=== PATIENT | female | born 1995 | race Caucasian/White ===

== ENCOUNTER 2018-08-09 19:19 | Emergency (ER) | payer BC ==
[~2018-08-09] VITALS: Ht 162.6 cm; Wt 60.8 kg
[2018-08-09 20:26] LABS: BILIRUBIN,URINE NEGATIVE (NEG); CLARITY,URINE TURBID; COLOR,URINE YELLOW; NITRITE,URINE NEGATIVE (NEG); PH,URINE 7.5; PROTEIN,URINE NEGATIVE (NEG-TRACE)
--- NOTE | 2018-08-09 20:27 | PHYS DOC ---
Past Medical History Past Medical History: No Pertinent History Additional Past Surgical Histo: WISDOM TEETH Alcohol Use: None Drug Use: None Adult General Chief Complaint Chief Complaint: VAGINAL BLEEDING HPI HPI 23-year-old female presents to ER for complaints of increased vaginal bleeding starting tonight around 6:30 PM. She reports she was seen by her OB doctor today and had dark brown vaginal discharge during the appointment. Patient states she had no change in symptoms until tonight at 6:30 PM. Patient denies any sexual intercourse or tampons. Patient reports she is 1 para 0 LMP 07/03/18. Pt reports on Sunday she had her hCG quantitative checked. Patient reports she was told everything was "okay" on labs. Patient had recheck today on labs but did not get results. Patient states she did have pelvic exam and believes she had swabs obtained during the exam. Patient reports she has ultrasound scheduled in 2 weeks. Patient denies any fever, urinary symptoms, vaginal pressure or pain, or abdominal pain. Patient denies soaking through any pads since onset of bright red blood tonight. She denies passing any tissue or clots. Review of Systems Review of Systems Constitutional: Denies fever or chills [] Eyes: Denies change in visual acuity, redness, or eye pain [] HENT: Denies nasal congestion or sore throat [] Respiratory: Denies cough or shortness of breath [] Cardiovascular: No additional information not addressed in HPI [] GI: Denies abdominal pain, nausea, vomiting, bloody stools or diarrhea [] : Denies dysuria or hematuria [] Musculoskeletal: Denies back pain or joint pain [] Integument: Denies rash or skin lesions [] Neurologic: Denies headache, focal weakness or sensory changes [] Endocrine: Denies polyuria or polydipsia [] All other systems were reviewed and found to be within normal limits, except as documented in this note. Current Medications Current Medications Current Medications Medications (Trade) Dose Ordered Sig/Domingo Start Time Stop Time Status Last Admin Dose Admin Cephalexin HCl (Keflex) 500 mg 1X ONCE 08/09/18 23:00 08/09/18 23:01 Allergies Allergies Allergies Coded Allergies Type Severity Reaction Last Updated Verified azithromycin Allergy Intermediate 08/09/18 Yes Physical Exam Physical Exam Constitutional: Well developed, well nourished, no acute distress, non-toxic appearance. [] HENT: Normocephalic, atraumatic, bilateral external ears normal, oropharynx moist, no oral exudates, nose normal. [] Eyes: PERRLA, EOMI, conjunctiva normal, no discharge. [] Neck: Normal range of motion, no tenderness, supple, no stridor. [] Cardiovascular:Heart rate regular rhythm, no murmur [] Lungs & Thorax: Bilateral breath sounds clear to auscultation [] Abdomen: Bowel sounds normal, soft, no tenderness, no masses, no pulsatile masses. [] Skin: Warm, dry, no erythema, no rash. [] Back: No tenderness, no CVA tenderness. [] Extremities: No tenderness, no cyanosis, no clubbing, ROM intact, no edema. [] Neurologic: Alert and oriented X 3, normal motor function, normal sensory function, no focal deficits noted. [] Psychologic: Affect normal, judgement normal, mood normal. [] 2030: Pelvic exam complete. Cervix was closed. Small clot in vaginal vault. Small amount of dark red blood around cervix which when removed no erythema, lesions, or active bleeding noted. External exam normal limits. Patient had no abdominal tenderness on palpation. No palpable masses. Current Patient Data Vital Signs Vital Signs Date Time Temp Pulse Resp B/P (MAP) Pulse Ox O2 Delivery O2 Flow Rate FiO2 08/09/18 21:11 96 16 106/59 (75) 100 Room Air 08/09/18 19:35 97.1 97.1 Lab Values Laboratory Tests Test 08/09/18 19:22 08/09/18 19:38 08/09/18 21:33 Urine Collection Type Unknown Urine Color Yellow Urine Clarity Turbid Urine pH 7.5 Urine Specific [place] 1.015 Urine Protein Negative mg/dL (NEG-TRACE) Urine Glucose (UA) Negative mg/dL (NEG) Urine Ketones (Stick) Negative mg/dL (NEG) Urine Blood Large (NEG) Urine Nitrite Negative (NEG) Urine Bilirubin Negative (NEG) Urine Urobilinogen Dipstick 1.0 mg/dL (0.2 mg/dL) Urine Leukocyte Esterase Negative (NEG) Urine RBC 11-20 /HPF (0-2) Urine WBC 11-20 /HPF (0-4) Urine Squamous Epithelial Cells Few /LPF Urine Amorphous Sediment Present /HPF Urine Bacteria 0 /HPF (0-FEW) Urine Mucus Slight /LPF POC Urine HCG, Qualitative Hcg positive (Negative) White Blood Count 6.3 x10^3/uL (4.0-11.0) Red Blood Count 4.49 x10^6/uL (3.50-5.40) Hemoglobin 13.1 g/dL (12.0-15.5) Hematocrit 38.6 % (36.0-47.0) Mean Corpuscular Volume 86 fL (79-100) Mean Corpuscular Hemoglobin 29 pg (25-35) Mean Corpuscular Hemoglobin Concent 34 g/dL (31-37) Red Cell Distribution Width 13.6 % (11.5-14.5) Platelet Count 202 x10^3/uL (140-400) Neutrophils (%) (Auto) 61 % (31-73) Lymphocytes (%) (Auto) 32 % (24-48) Monocytes (%) (Auto) 6 % (0-9) Eosinophils (%) (Auto) 1 % (0-3) Basophils (%) (Auto) 0 % (0-3) Neutrophils # (Auto) 3.9 x10^3uL (1.8-7.7) Lymphocytes # (Auto) 2.0 x10^3/uL (1.0-4.8) Monocytes # (Auto) 0.4 x10^3/uL (0.0-1.1) Eosinophils # (Auto) 0.0 x10^3/uL (0.0-0.7) Basophils # (Auto) 0.0 x10^3/uL (0.0-0.2) Maternal Serum HCG Beta Subunit 75689 mIU/mL (0-5) H Laboratory Tests 08/09/18 21:33 EKG EKG [] Radiology/Procedures Radiology/Procedures [] Course & Med Decision Making Course & Med Decision Making Pertinent Labs reviewed. (See chart for details) 2240: Discussed test results with patient and her . Patient was A positive blood type so not a [place] candidate. Patient denies any increased vaginal bleeding denying soaking through any pads while in the ER. Patient remains nontoxic in appearance and in no distress at time of reexam. Patient was provided with her lab results. H&H was stable. Patient is to follow-up with her NEUROLOGY DIRECTOR in 48 hours for recheck of hCG quantitative. Education was provided on signs and symptoms to return to ER for an discharge instructions were discussed. Patient was provided with dose of Keflex for UTI diagnosis while in the ER. Prescription sent with discharge paperwork. Gilmer Disclaimer Gilmer Disclaimer This electronic medical record was generated, in whole or in part, using a voice recognition dictation system. Departure Departure Impression: Primary Impression: UTI (urinary tract infection) Additional Impressions: Vaginal bleeding during Threatened miscarriage Disposition: HOME, SELF-CARE Condition: STABLE Patient Instructions: Threatened Miscarriage, Urinary Tract Infection, Vaginal Bleeding During , First Trimester Additional Instructions: Drink plenty of fluids. Follow-up with your NEUROLOGY DIRECTOR in 48 hours for recheck of your hCG quantitative level. If soaking through more then 2-3 pads in 1 hour return to the emergency department or contact her NEUROLOGY DIRECTOR for further care. Scripts Cephalexin (KEFLEX) 500 Mg Capsule 1 CAP PO BID, #13 CAP 0 Refills start on 08/10/18 Prov: NATIVIDAD POWELL APRN 08/09/18 Problem Qualifiers NATIVIDAD POWELL APRN Aug 09, 2018 20:27
[2018-08-09 20:33] LABS: AMORPHOUS SEDIMENT,UR PRESENT /HPF; BACTERIA,URINE 0 /HPF (0-FEW); SQUAMOUS EPITHELIAL CELL,UR FEW /LPF
[2018-08-09 21:44] LABS: BASO % 0 % (0-3); EOS % 1 % (0-3); HEMATOCRIT 38.6 % (36.0-47.0); HEMOGLOBIN 13.1 g/dL (12.0-15.5); LYMPH % 32 % (24-48); MEAN CORPUSCULAR HEMOGLOBIN 29 pg (25-35); MEAN CORPUSCULAR HGB CONC 34 g/dL (31-37); MEAN CORPUSCULAR VOLUME 86 fL (79-100); MONO # 0.4 x10^3/uL (0.0-1.1); MONO % 6 % (0-9); NEUT # 3.9 x10^3uL (1.8-7.7); NEUT % 61 % (31-73); PLATELET COUNT 202 x10^3/uL (140-400); RED BLOOD COUNT 4.49 x10^6/uL (3.50-5.40); RED CELL DISTRIBUTION WIDTH 13.6 % (11.5-14.5); WHITE BLOOD COUNT 6.3 x10^3/uL (4.0-11.0)
[2018-08-09 22:45] VITALS: BP 127/63
[2018-08-09] MEDS ORDERED: CEPH-264 PO (22:50)
[2018-08-09] MEDS: CEPHALEXIN 250 MG CAPSULE. PO ONE (22:56)
== END 2018-08-09 22:55 | disposition home or self-care (01) ==
LOC: ER 19:19
DX: O20.0 Threatened abortion (principal); O23.41 Unspecified infection of urinary tract in pregnancy, first trimester; Z88.1 Allergy status to other antibiotic agents; Z3A.01 Less than 8 weeks gestation of pregnancy
CPT/HCPCS: 36415; 81001; 81025; 84702; 85025; 86850; 86900; 86901; 99283

== ENCOUNTER 2018-08-11 20:27 | Emergency (ER) | payer BC ==
[~2018-08-11] VITALS: Ht 162.6 cm; Wt 61.2 kg
[~2018-08-11 20:27] MED LIST: CEPH-264 PO
[2018-08-11 20:30] VITALS: BP 120/68
--- NOTE | 2018-08-11 22:40 | PHYS DOC ---
Past Medical History Past Medical History: No Pertinent History Additional Past Surgical Histo: WISDOM TEETH Alcohol Use: None Drug Use: None Adult General Chief Complaint Chief Complaint: OTHER COMPLAINTS HPI HPI Patient is a 23 year old [f__sex] who presents with [] Review of Systems Review of Systems Constitutional: Denies fever or chills [] Eyes: Denies change in visual acuity, redness, or eye pain [] HENT: Denies nasal congestion or sore throat [] Respiratory: Denies cough or shortness of breath [] Cardiovascular: No additional information not addressed in HPI [] GI: Denies abdominal pain, nausea, vomiting, bloody stools or diarrhea [] : Denies dysuria or hematuria [] Musculoskeletal: Denies back pain or joint pain [] Integument: Denies rash or skin lesions [] Neurologic: Denies headache, focal weakness or sensory changes [] Endocrine: Denies polyuria or polydipsia [] All other systems were reviewed and found to be within normal limits, except as documented in this note. Allergies Allergies Allergies Coded Allergies Type Severity Reaction Last Updated Verified azithromycin Allergy Intermediate 08/09/18 Yes Physical Exam Physical Exam Constitutional: Well developed, well nourished, no acute distress, non-toxic appearance. [] HENT: Normocephalic, atraumatic, bilateral external ears normal, oropharynx moist, no oral exudates, nose normal. [] Eyes: PERRLA, EOMI, conjunctiva normal, no discharge. [] Neck: Normal range of motion, no tenderness, supple, no stridor. [] Cardiovascular:Heart rate regular rhythm, no murmur [] Lungs & Thorax: Bilateral breath sounds clear to auscultation [] Abdomen: Bowel sounds normal, soft, no tenderness, no masses, no pulsatile masses. [] Skin: Warm, dry, no erythema, no rash. [] Back: No tenderness, no CVA tenderness. [] Extremities: No tenderness, no cyanosis, no clubbing, ROM intact, no edema. [] Neurologic: Alert and oriented X 3, normal motor function, normal sensory function, no focal deficits noted. [] Psychologic: Affect normal, judgement normal, mood normal. [] Current Patient Data Vital Signs Vital Signs Date Time Temp Pulse Resp B/P (MAP) Pulse Ox O2 Delivery O2 Flow Rate FiO2 08/11/18 20:30 98.6 81 18 120/68 (85) 100 Room Air 98.6 Lab Values Laboratory Tests Test 08/11/18 20:49 08/11/18 21:35 POC Urine HCG, Qualitative Hcg positive (Negative) Maternal Serum HCG Beta Subunit 21757 mIU/mL (0-5) H EKG EKG [] Radiology/Procedures Radiology/Procedures [] Course & Med Decision Making Course & Med Decision Making Pertinent Labs and Imaging studies reviewed. (See chart for details) [] Dragon Disclaimer Dragon Disclaimer This electronic medical record was generated, in whole or in part, using a voice recognition dictation system. Departure Departure Impression: Primary Impression: Elevated serum human chorionic gonadotropin (hCG) level Additional Impression: Disposition: 01 HOME, SELF-CARE Condition: STABLE Referrals: UNKNOWN PCP NAME (PCP) Patient Instructions: ABCs of , Human Chorionic Gonadotropin (hCG) Additional Instructions: Your HCG levels have risen appropriately in the past 2 days. See your insurance salesman at your next scheduled appointment or return to the emergency department if worsening. Problem Qualifiers AKIN GAY APRN Aug 11, 2018 22:40
== END 2018-08-11 22:45 | disposition home or self-care (01) ==
LOC: ER 20:27
DX: O02.81 Inappropriate change in quantitative human chorionic gonadotropin (hCG) in early pregnancy (principal); Z88.1 Allergy status to other antibiotic agents; Z3A.01 Less than 8 weeks gestation of pregnancy
CPT/HCPCS: 36415; 81025; 84702; 99283

== ENCOUNTER → 2018-08-26 | Outpatient (CLI) | payer BC ==
[2018-08-11 20:30] VITALS: BP 120/68
--- NOTE | 2018-08-26 17:38 | RAD ---
OB ultrasound less than 14 weeks to include transabdominal and transvaginal imaging 08/26/2018 CLINICAL HISTORY: First trimester . Vaginal bleeding. Pelvic pain. TECHNIQUE: Using the distended urinary bladder as a sonographic window, a real-time ultrasound examination of the pelvis was performed. Additionally in an attempt to better evaluate the uterus and adnexa, a transvaginal pelvic ultrasound was performed. Multiple images were obtained. FINDINGS: A gestational sac is seen within the endometrial canal within the left aspect of the uterine body. 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 An embryonic pole with associated yolk sac are seen. The CRL of this embryonic pole measures 3.5 mm. This corresponds to an estimated gestational age by ultrasound of 6 weeks 0 days plus or minus a standard deviation of 5 days. No embryonic cardiac activity is seen. The gestational sac is irregular and enlarged relative to the size of the embryo measuring 3.1 cm in greatest diameter. These findings are concerning for embryonic demise. A heterogeneous area is seen immediately to the right of the gestational sac within the mid aspect of the uterus which likely represents an area of subchorionic hemorrhage. This measures 2.3 cm in size. No additional abnormality of the uterus is seen. Both ovaries are within normal limits in size. The right ovary measures 4.4 x 3.9 x 2.0 cm in size. The left ovary measures 3.1 x 3.0 x 1.9 cm in size. A small amount of free fluid is seen within the pelvic cul-de-sac. No adnexal mass is seen. IMPRESSION: Findings are seen concerning for embryonic demise as outlined above. Electronically signed by: Ivan Vargas MD (08/26/2018 5:35 PM) [facility]
== END | disposition home or self-care (01) ==
LOC: US 15:46
PROVIDERS: ATTEND Obstetrics & Gynecology
DX: Z34.91 Encounter for supervision of normal pregnancy, unspecified, first trimester (principal); Z3A.08 8 weeks gestation of pregnancy
CPT/HCPCS: 76801; 76817

== ENCOUNTER 2018-10-14 21:00 | Inpatient (IN) | payer BC ==
[~2018-10-14] VITALS: Ht 162.6 cm; Wt 61.2 kg
[2018-10-14] MEDS ORDERED: KETOROLAC 30 MG/ML VIAL. IV ONE (22:15)
[2018-10-14] MEDS ORDERED: IV NORMAL SALINE 1000ML BAG 1,000 ML IV ONE (22:15)
[2018-10-14] MEDS ORDERED: ACETAMINOPHEN 500 MG TABLET PO ONE (22:15)
[2018-10-14 22:30] LABS: BASO % 0 % (0-3); EOS % 0 % (0-3); HEMATOCRIT 33.9 % (36.0-47.0); HEMOGLOBIN 11.5 g/dL (12.0-15.5); LYMPH # 0.3 x10^3/uL (1.0-4.8); LYMPH % 3 % (24-48); MEAN CORPUSCULAR HEMOGLOBIN 30 pg (25-35); MEAN CORPUSCULAR HGB CONC 34 g/dL (31-37); MEAN CORPUSCULAR VOLUME 87 fL (79-100); MONO # 0.2 x10^3/uL (0.0-1.1); MONO % 3 % (0-9); NEUT # 9.1 x10^3uL (1.8-7.7); NEUT % 94 % (31-73); PLATELET COUNT 174 x10^3/uL (140-400); RED BLOOD COUNT 3.89 x10^6/uL (3.50-5.40); RED CELL DISTRIBUTION WIDTH 13.3 % (11.5-14.5); WHITE BLOOD COUNT 9.7 x10^3/uL (4.0-11.0)
[2018-10-14 22:33] LABS: BILIRUBIN,URINE NEGATIVE (NEG); CLARITY,URINE CLEAR; COLOR,URINE YELLOW; NITRITE,URINE NEGATIVE (NEG); PROTEIN,URINE NEGATIVE (NEG-TRACE)
[2018-10-14 22:37] LABS: CALCIUM 8.8 mg/dL (8.5-10.1); CREATININE 0.9 mg/dL (0.6-1.0); GFR 78.3; POTASSIUM 3.7 mmol/L (3.5-5.1)
[2018-10-14 22:40] LABS: BACTERIA,URINE 0 /HPF (0-FEW); RBC,URINE 0 /HPF (0-2); SQUAMOUS EPITHELIAL CELL,UR FEW /LPF; WBC,URINE OCC /HPF (0-4)
[2018-10-14 22:43] LABS: ALBUMIN 3.7 g/dL (3.4-5.0); ALBUMIN/GLOBULIN RATIO 1.1 (1.0-1.7); TOTAL BILIRUBIN 1.1 mg/dL (0.2-1.0); TOTAL PROTEIN 7.2 g/dL (6.4-8.2)
[2018-10-14] MEDS ORDERED: PIPERACILLIN/TAZOBACTAM 4.5 GM in IV NORMAL SALINE 100ML 100 ML IV ONE (22:45)
[2018-10-14] MEDS ORDERED: IV NORMAL SALINE 500ML BAG 500 ML IV ONE (23:15)
[2018-10-14 23:17] LABS: % BANDS 4 % (0-9); % EOS 1 % (0-5); % LYMPHS 5 % (24-48); % SEGS 90 % (35-66); PLT ESTIMATE ADEQUATE (ADEQUATE)
[2018-10-14] MEDS ORDERED: ONDANSETRON PF 4 MG/2 ML VIAL. IV PRN (23:30)
[2018-10-14] MEDS ORDERED: PIP/TAZO PER PHARMACY MC PRN (23:30)
[2018-10-14] MEDS ORDERED: fentaNYL PF VIAL 100 MCG/2 ML VIAL IV PRN (23:30)
[2018-10-14 23:39] LABS: INFLUENZA A PATIENT NEGATIVE (NEGATIVE); INFLUENZA B PATIENT NEGATIVE (NEGATIVE)
[2018-10-14] MEDS ORDERED: IOHEXOL 300 MG/ML 100ML VIAL. IV ONE (23:45)
[2018-10-14] MEDS: IV NORMAL SALINE 1000ML BAG 1,000 ML IV SCH (23:45)
[2018-10-14] MEDS ORDERED: CONTRAST GIVEN. MC PRN (23:45)
--- NOTE | 2018-10-14 23:45 | PHYS DOC ---
Past Medical History Past Medical History: Other Additional Past Medical Histor: fifths disease, pvc's Past Surgical History: Other Additional Past Surgical Histo: WISDOM TEETH Alcohol Use: Occasionally Drug Use: None Adult General Chief Complaint Chief Complaint: FEVER HPI HPI 23-year-old female who is approximately 10 weeks had a spontaneous AB followed with an elective D&C done approximately 36 hours ago. Today she is developed some low abdominal discomfort, body aches and a headache. She states she's had no foul vaginal discharge she does continue to have some spotting which her surgeon told her would be normal. She has not had any nausea or vomiting.[] Review of Systems Review of Systems Constitutional: Reports fever[] Eyes: Denies change in visual acuity, redness, or eye pain [] HENT: Denies nasal congestion or sore throat [] Respiratory: Denies cough or shortness of breath [] Cardiovascular: No additional information not addressed in HPI [] GI: Reports some low abdominal discomfort[] : Denies dysuria or hematuria [] Musculoskeletal: Denies back pain or joint pain [] Integument: Denies rash or skin lesions [] Neurologic: Denies headache, focal weakness or sensory changes [] Endocrine: Denies polyuria or polydipsia [] All other systems were reviewed and found to be within normal limits, except as documented in this note. Current Medications Current Medications Current Medications Medications (Trade) Dose Ordered Sig/Domingo Start Time Stop Time Status Last Admin Dose Admin Acetaminophen (Tylenol) 1,000 mg 1X ONCE 10/14/18 22:15 10/14/18 22:20 DC 10/14/18 22:32 1,000 MG Ketorolac Tromethamine (Toradol 30mg Vial) 30 mg 1X ONCE 10/14/18 22:15 10/14/18 22:20 DC 10/14/18 22:31 30 MG Piperacillin Sod/ Tazobactam Sod 4.5 gm/Sodium Chloride 100 ml @ 200 mls/hr 1X ONCE 10/14/18 22:45 10/14/18 23:14 DC 10/14/18 22:57 200 MLS/HR Sodium Chloride 500 ml @ 500 mls/hr 1X ONCE 10/14/18 23:15 10/15/18 00:14 DC 10/14/18 23:00 500 MLS/HR Allergies Allergies Allergies Coded Allergies Type Severity Reaction Last Updated Verified azithromycin Allergy Intermediate 2/1/19 Yes Physical Exam Physical Exam Constitutional: Well developed, well nourished, no acute distress, non-toxic appearance. [] HENT: Normocephalic, atraumatic, bilateral external ears normal, oropharynx moist, no oral exudates, nose normal. [] Eyes: PERRLA, EOMI, conjunctiva normal, no discharge. [] Neck: Normal range of motion, no tenderness, supple, no stridor. [] Cardiovascular:Heart rate regular rhythm, no murmur [] Lungs & Thorax: Bilateral breath sounds clear to auscultation [] Abdomen: Bowel sounds normal, soft, no tenderness, no masses, no pulsatile masses. [] Skin: Warm, dry, no erythema, no rash. [] Back: No tenderness, no CVA tenderness. [] Extremities: No tenderness, no cyanosis, no clubbing, ROM intact, no edema. [] Neurologic: Alert and oriented X 3, normal motor function, normal sensory function, no focal deficits noted. [] Psychologic: Affect normal, judgement normal, mood normal. [] Current Patient Data Vital Signs Vital Signs Date Time Temp Pulse Resp B/P (MAP) Pulse Ox O2 Delivery O2 Flow Rate FiO2 10/14/18 23:07 109 20 98 10/14/18 22:05 103.1 103.1 10/14/18 22:04 111/55 (73) Room Air Lab Values Laboratory Tests Test 10/14/18 22:20 10/14/18 22:25 10/14/18 23:10 White Blood Count 9.7 x10^3/uL (4.0-11.0) Red Blood Count 3.89 x10^6/uL (3.50-5.40) Hemoglobin 11.5 g/dL (12.0-15.5) L Hematocrit 33.9 % (36.0-47.0) L Mean Corpuscular Volume 87 fL (79-100) Mean Corpuscular Hemoglobin 30 pg (25-35) Mean Corpuscular Hemoglobin Concent 34 g/dL (31-37) Red Cell Distribution Width 13.3 % (11.5-14.5) Platelet Count 174 x10^3/uL (140-400) Neutrophils (%) (Auto) 94 % (31-73) H Lymphocytes (%) (Auto) 3 % (24-48) L Monocytes (%) (Auto) 3 % (0-9) Eosinophils (%) (Auto) 0 % (0-3) Basophils (%) (Auto) 0 % (0-3) Neutrophils # (Auto) 9.1 x10^3uL (1.8-7.7) H Lymphocytes # (Auto) 0.3 x10^3/uL (1.0-4.8) L Monocytes # (Auto) 0.2 x10^3/uL (0.0-1.1) Eosinophils # (Auto) 0.0 x10^3/uL (0.0-0.7) Basophils # (Auto) 0.0 x10^3/uL (0.0-0.2) Segmented Neutrophils % 90 % (35-66) H Band Neutrophils % 4 % (0-9) Lymphocytes % 5 % (24-48) L Eosinophils % 1 % (0-5) Platelet Estimate Adequate (ADEQUATE) Sodium Level 140 mmol/L (136-145) Potassium Level 3.7 mmol/L (3.5-5.1) Chloride Level 102 mmol/L (98-107) Carbon Dioxide Level 27 mmol/L (21-32) Anion Gap 11 (6-14) Blood Urea Nitrogen 6 mg/dL (7-20) L Creatinine 0.9 mg/dL (0.6-1.0) Estimated GFR (Cockcroft-Gault) 78.3 BUN/Creatinine Ratio 7 (6-20) Glucose Level 116 mg/dL (70-99) H Lactic Acid Level 1.4 mmol/L (0.4-2.0) Calcium Level 8.8 mg/dL (8.5-10.1) Total Bilirubin 1.1 mg/dL (0.2-1.0) H Aspartate Amino Transferase (AST) 19 U/L (15-37) Alanine Aminotransferase (ALT) 17 U/L (14-59) Alkaline Phosphatase 55 U/L (46-116) Total Protein 7.2 g/dL (6.4-8.2) Albumin 3.7 g/dL (3.4-5.0) Albumin/Globulin Ratio 1.1 (1.0-1.7) Urine Collection Type Void Urine Color Yellow Urine Clarity Clear Urine pH 8.0 Urine Specific [place] 1.015 Urine Protein Negative mg/dL (NEG-TRACE) Urine Glucose (UA) Negative mg/dL (NEG) Urine Ketones (Stick) Negative mg/dL (NEG) Urine Blood Negative (NEG) Urine Nitrite Negative (NEG) Urine Bilirubin Negative (NEG) Urine Urobilinogen Dipstick 1.0 mg/dL (0.2 mg/dL) Urine Leukocyte Esterase Negative (NEG) Urine RBC 0 /HPF (0-2) Urine WBC Occ /HPF (0-4) Urine Squamous Epithelial Cells Few /LPF Urine Bacteria 0 /HPF (0-FEW) Influenza Type A Antigen Negative (NEGATIVE) Influenza Type B Antigen Negative (NEGATIVE) Laboratory Tests 10/14/18 22:20 Laboratory Tests 10/14/18 22:20 EKG EKG [] Radiology/Procedures Radiology/Procedures []INDICATION: fever; post-op D&C;eval for perforation to uterus; Omni 300, 75ml COMPARISON: None. TECHNIQUE: Axial CT images obtained through the abdomen and pelvis with contrast. One or more of the following individualized dose reduction techniques were utilized for this examination: 1. Automated exposure control; 2. Adjustment of the mA and/or kV according to patient size; 3. Use of iterative reconstruction technique. FINDINGS: Abdominal aorta is not aneurysmal. No intrahepatic bile duct dilation. The pancreas enhances. Spleen is mildly prominent. Prominence of bilateral extrarenal pelvis. Kidneys enhance symmetrically. Urinary bladder is partially distended at time of exam. The uterus is visualized without a definite adjacent region of free air. Along the left lateral aspect of the uterus there is a linear band of low density. The suspected appendix is partially seen without inflammation adjacent to approximately. Distal aorta is not well evaluated secondary to lack of oral contrast and multiple loops of bowel in the area. IMPRESSION: 1. No free air is seen adjacent to the uterus. 2. Along the left lateral aspect of the uterus near the fundus there is a linear band of low density seen. Difficult to tell if this is artifactual in nature or secondary to posttraumatic causes such as a laceration within the left lateral aspect of the myometrium. There is also a small amount of fluid seen along the right lateral aspect of the uterus anteriorly. This measures up to approximately 7 mm x 17 mm and is either within the peripheral aspect of the right side of the uterus or immediately adjacent to it. Posttraumatic causes are within the differential for this region of fluid although nonspecific appearance. There is also a possible low-density lesion in the left adnexa versus a small amount of high density fluid within the area with a small amount of blood in the area not excluded. This measures up to about 2 cm. May be helpful to obtain a follow-up ultrasound to further evaluate. Impressions: Chest x-ray: Negative exam as interpreted by me Course & Med Decision Making Course & Med Decision Making Pertinent Labs and Imaging studies reviewed. (See chart for details) [ED course: Evaluation reveals a 23-year-old female who is status post D&C with high fever. Initial most likely diagnosis is endometritis. She is allergic to azithromycin which gives her hives so I elected to give her 4.5 g of Zosyn IV which she tolerated well. I spoke with Dr. Baron who agreed to admit the patient for further evaluation. I will get a CT scan with contrast prior to her going up to the ACCOUNT MANAGER EDUCATION floor.] Dragon Disclaimer Dragon Disclaimer This electronic medical record was generated, in whole or in part, using a voice recognition dictation system. Departure Departure Impression: Primary Impression: Endometritis Disposition: ADMITTED INPATIENT Admitting Physician: Other (Dr. Baron) Condition: STABLE (ERASED) Referrals: UNKNOWN PCP NAME (PCP) DICKSON CARABALLO DO Oct 14, 2018 23:45
[2018-10-15 00:15] VITALS: BP 113/46
--- NOTE | 2018-10-15 00:26 | RAD ---
INDICATION: fever; post-op D&C;eval for perforation to uterus; Omni 300, 75ml COMPARISON: None. TECHNIQUE: Axial CT images obtained through the abdomen and pelvis with contrast. One or more of the following individualized dose reduction techniques were utilized for this examination: 1. Automated exposure control; 2. Adjustment of the mA and/or kV according to patient size; 3. Use of iterative reconstruction technique. FINDINGS: Abdominal aorta is not aneurysmal. No intrahepatic bile duct dilation. The pancreas enhances. Spleen is mildly prominent. Prominence of bilateral extrarenal pelvis. Kidneys enhance symmetrically. Urinary bladder is partially distended at time of exam. The uterus is visualized without a definite adjacent region of free air. Along the left lateral aspect of the uterus there is a linear band of low density. The suspected appendix is partially seen without inflammation adjacent to approximately. Distal aorta is not well evaluated secondary to lack of oral contrast and multiple loops of bowel in the area. IMPRESSION: 1. No free air is seen adjacent to the uterus. 2. Along the left lateral aspect of the uterus near the fundus there is a linear band of low density seen. Difficult to tell if this is artifactual in nature or secondary to posttraumatic causes such as a laceration within the left lateral aspect of the myometrium. There is also a small amount of fluid seen along the right lateral aspect of the uterus anteriorly. This measures up to approximately 7 mm x 17 mm and is either within the peripheral aspect of the right side of the uterus or immediately adjacent to it. Posttraumatic causes are within the differential for this region of fluid although nonspecific appearance. There is also a possible low-density lesion in the left adnexa versus a small amount of high density fluid within the area with a small amount of blood in the area not excluded. This measures up to about 2 cm. May be helpful to obtain a follow-up ultrasound to further evaluate. Electronically signed by: Juan C Morales MD (10/15/2018 12:23 AM) [facility]
--- NOTE | 2018-10-15 01:22 | NUR ---
Results of CT of abd/pel called to Dr. Knott and new orders obtained.
[2018-10-15 05:23] LABS: BASO % 0 % (0-3); EOS % 0 % (0-3); HEMATOCRIT 30.7 % (36.0-47.0); HEMOGLOBIN 10.4 g/dL (12.0-15.5); LYMPH # 0.5 x10^3/uL (1.0-4.8); LYMPH % 7 % (24-48); MEAN CORPUSCULAR HEMOGLOBIN 30 pg (25-35); MEAN CORPUSCULAR HGB CONC 34 g/dL (31-37); MEAN CORPUSCULAR VOLUME 87 fL (79-100); MONO # 0.1 x10^3/uL (0.0-1.1); MONO % 2 % (0-9); NEUT % 91 % (31-73); PLATELET COUNT 158 x10^3/uL (140-400); RED BLOOD COUNT 3.51 x10^6/uL (3.50-5.40); RED CELL DISTRIBUTION WIDTH 13.6 % (11.5-14.5); WHITE BLOOD COUNT 6.6 x10^3/uL (4.0-11.0)
[2018-10-15 05:31] VITALS: BP 121/68
[2018-10-15] MEDS: ACETAMINOPHEN 325 MG TABLET. PO PRN ×2 (05:59→13:39)
[2018-10-15] MEDS: PIPERACILLIN/TAZOBACTAM 3.375 GM in IV NORMAL SALINE 50ML 50 ML IV SCH ×3 (06:00→17:58)
[2018-10-15] MEDS: IV NORMAL SALINE 1000ML BAG 1,000 ML IV SCH (06:00)
[2018-10-15 06:04] LABS: CALCIUM 7.7 mg/dL (8.5-10.1); CREATININE 0.7 mg/dL (0.6-1.0); GFR 104.6; POTASSIUM 3.4 mmol/L (3.5-5.1)
--- NOTE | 2018-10-15 07:49 | RAD ---
EXAM: Chest, single view. HISTORY: Headaches. Chills. COMPARISON: None. FINDINGS: A frontal view of the chest obtained. There is no infiltrate, pleural effusion or pneumothorax. The heart is normal in size. IMPRESSION: No acute pulmonary finding. Electronically signed by: Tatum King MD (10/15/2018 7:46 AM) [facility]
[2018-10-15 11:20] VITALS: BP 111/62
--- NOTE | 2018-10-15 11:48 | PDOC1 ---
History and Physical Date of Admission Date of Admission DATE: 10/15/18 TIME: 11:43 Identification/Chief Complaint Chief Complaint vaginal bleeding and abd pain Source Source: Chart review, Patient History of Present Illness History of Present Illness 23 y/o G1 A1 presented to ED with c/o abd cramping and vaginal bleeding. She had Suction D&C at [facility] for incomplete . Previous to this she was diagnosed with missed . She was about 13 wks gestation at time of Suction D&C. She has elevated WBC and fevers with max 103. Pt. now with post op endometritis and receiving IV abx. Past Surgical History Past Surgical History: Other (D&C) Current Medications Current Medications Current Medications Ketorolac Tromethamine (Toradol 30mg Vial) 30 mg 1X ONCE IV Last administered on 10/14/18at 22:31; Start 10/14/18 at 22:15; Stop 10/14/18 at 22:20; Status DC Sodium Chloride 1,000 ml @ 1,000 mls/hr 1X ONCE IV Last administered on at 22:26; Start 10/14/18 at 22:15; Stop 10/14/18 at 23:14; Status DC Acetaminophen (Tylenol) 1,000 mg 1X ONCE PO Last administered on 10/14/18at 22: 32; Start 10/14/18 at 22:15; Stop 10/14/18 at 22:20; Status DC Piperacillin Sod/ Tazobactam Sod 4.5 gm/Sodium Chloride 100 ml @ 200 mls/hr 1X ONCE IV Last administered on 10/14/18at 22:57; Start 10/14/18 at 22:45; Stop 10/14/18 at 23:14; Status DC Sodium Chloride 500 ml @ 500 mls/hr 1X ONCE IV Last administered on 10/14/18at 23:00; Start 10/14/18 at 23:15; Stop 10/15/18 at 00:14; Status DC Ondansetron HCl (Zofran) 4 mg PRN Q8HRS PRN IV NAUSEA/VOMITING; Start 10/14/18 at 23:30; Stop 10/15/18 at 23:29 Fentanyl Citrate (Fentanyl 2ml Vial) 50 mcg PRN Q4HRS PRN IV PAIN; Start at 23:30; Stop 10/15/18 at 23:29 Sodium Chloride 1,000 ml @ 125 mls/hr Q8H IV Last administered on 10/15/18at 06: 00; Start 10/14/18 at 23:45; Stop 10/15/18 at 23:44 Acetaminophen (Tylenol) 650 mg PRN Q4HRS PRN PO FEVER Last administered on at 05:59; Start 10/14/18 at 23:30; Stop 10/15/18 at 23:29 Piperacillin Sod/ Tazobactam Sod (Zosyn Per Pharmacy) 1 each PRN DAILY PRN [facility] SEE COMMENTS; Start 10/14/18 at 23:30 Piperacillin Sod/ Tazobactam Sod 3.375 gm/Sodium Chloride 50 ml @ 100 mls/hr Q6HRS IV Last administered on 10/15/18at 06:00; Start 10/15/18 at 06:00 Iohexol (Omnipaque 300 Mg/ml) 75 ml 1X ONCE IV Last administered on 10/14/18at 00:15; Start 10/14/18 at 23:45; Stop 10/14/18 at 23:46; Status DC Info (CONTRAST GIVEN -- Rx MONITORING) 1 each PRN DAILY PRN [facility] SEE COMMENTS; Start 10/14/18 at 23:45; Stop 10/16/18 at 23:44 Metronidazole 100 ml @ 100 mls/hr Q12HR IV Last administered on 10/15/18at 08:27 ; Start 10/15/18 at 09:00 Active Scripts Active Keflex (Cephalexin) 500 Mg Capsule 1 Cap PO BID start on 08/10/18 Allergies Allergies: Coded Allergies: azithromycin (Verified Allergy, Intermediate, 08/09/18) ROS General: YES: Fatigue, Malaise, Appetite; No: Chills, Night Sweats, Other PSYCHOLOGICAL ROS: YES: Anxiety; No: Behavioral Disorder, Concentration difficultie, Decreased libido, Depression, Disorientation, Hallucinations, Hostility, Irritablity, Memory difficulties, Mood Swings, Obsessive thoughts, Physical abuse, Sexual abuse, Sleep disturbances, Suicidal ideation, Other Eyes: No Blurry vision, No Decreased vision, No Double vision, No Dry eyes, No Excessive tearing, No Eye Pain, No Itchy Eyes, No Loss of vision, No Photophobia , No Scotomata, No Uses contacts, No Uses glasses, No Other HEENT: No: Heacaches, Visual Changes, Hearing change, Nasal congestion, Nasal discharge, Oral lesions, Sinus pain, Sore Throat, Epistaxis, Sneezing, Snoring, Tinnitus, Vertigo, Vocal changes, Other ALLERGY AND IMMUNOLOGY: No: Hives, Insect Bite Sensitivity, Itchy/Watery Eyes, Nasal Congestion, Post Nasal Drip, Seasonal Allergies, Other Hematological and Lymphatic: No: Bleeding Problems, Blood Clots, Blood Transfusions, Brusing, Night Sweats, Pallor, Swollen Lymph Nodes, Other ENDOCRINE: No: Breast Changes, Galactorrhea, Hair Pattern Changes, Hot Flashes , Malaise/lethargy, Mood Swings, Palpitations, Polydipsia/polyuria, Skin Changes , Temperature Intolerance, Unexpected Weight Changes, Other Breast: No New/Changing Breast Lumps, No Nipple changes, No Nipple discharge, No Other Respiratory: No: Cough, Hemoptysis, Orthopnea, Pleuritic Pain, Shortness of breath, SOB with excertion, Sputum Changes, Stridor, Tachypnea, Wheezing, Other Cardiovascular: No Chest Pain, No Palpitations, No Orthopnea, No Paroxysmal Noc. Dyspnea, No Edema, No Lt Headedness, No Other Gastrointestinal: Yes Abdominal Pain; No Nausea, No Vomiting, No Diarrhea, No Constipation, No Melena, No Hematochezia, No Other Genitourinary: No Dysuria, No Frequency, No Incontinence, No Hematuria, No Retention, No Discharge, No Urgency, No Pain, No Flank Pain, No Other, No , No , No , No , No , No , No Musculoskeletal: No Gait Disturbance, No Joint Pain, No Joint Stiffness, No Joint Swelling, No Muscle Pain, No Muscular Weakness, No Pain In:, No Swelling In:, No Other Skin: No Dry Skin, No Eczema, No Hair Changes, No Lumps, No Mole Changes, No Mottling, No Nail Changes, No Pruritus, No Rash, No Skin Lesion Changes, No Other, No Acne Physical Exam General: No acute distress HEENT: Atraumatic Lungs: Clear to auscultation Heart: S1S2 Abdomen: Normal bowel sounds, Soft, No masses, Other (moderate tenderness to palpation. No rebound tenderness.) PELVIC: Nml ext genitalia Psych/Mental Status: Mental status NL Vitals Vitals Vital Signs Date Time Temp Pulse Resp B/P (MAP) Pulse Ox O2 Delivery O2 Flow Rate FiO2 10/15/18 08:20 98.6 98.6 10/15/18 05:31 106 18 121/68 (85) 100 Room Air Labs Labs Laboratory Tests Test 10/14/18 22:20 10/14/18 22:25 10/14/18 23:10 10/15/18 03:30 White Blood Count 9.7 x10^3/uL (4.0-11.0) Red Blood Count 3.89 x10^6/uL (3.50-5.40) Hemoglobin 11.5 g/dL (12.0-15.5) Hematocrit 33.9 % (36.0-47.0) Mean Corpuscular Volume 87 fL (79-100) Mean Corpuscular Hemoglobin 30 pg (25-35) Mean Corpuscular Hemoglobin Concent 34 g/dL (31-37) Red Cell Distribution Width 13.3 % (11.5-14.5) Platelet Count 174 x10^3/uL (140-400) Neutrophils (%) (Auto) 94 % (31-73) Lymphocytes (%) (Auto) 3 % (24-48) Monocytes (%) (Auto) 3 % (0-9) Eosinophils (%) (Auto) 0 % (0-3) Basophils (%) (Auto) 0 % (0-3) Neutrophils # (Auto) 9.1 x10^3uL (1.8-7.7) Lymphocytes # (Auto) 0.3 x10^3/uL (1.0-4.8) Monocytes # (Auto) 0.2 x10^3/uL (0.0-1.1) Eosinophils # (Auto) 0.0 x10^3/uL (0.0-0.7) Basophils # (Auto) 0.0 x10^3/uL (0.0-0.2) Segmented Neutrophils % 90 % (35-66) Band Neutrophils % 4 % (0-9) Lymphocytes % 5 % (24-48) Eosinophils % 1 % (0-5) Platelet Estimate Adequate (ADEQUATE) Sodium Level 140 mmol/L (136-145) 141 mmol/L (136-145) Potassium Level 3.7 mmol/L (3.5-5.1) 3.4 mmol/L (3.5-5.1) Chloride Level 102 mmol/L (98-107) 107 mmol/L (98-107) Carbon Dioxide Level 27 mmol/L (21-32) 23 mmol/L (21-32) Anion Gap 11 (6-14) 11 (6-14) Blood Urea Nitrogen 6 mg/dL (7-20) 6 mg/dL (7-20) Creatinine 0.9 mg/dL (0.6-1.0) 0.7 mg/dL (0.6-1.0) Estimated GFR (Cockcroft-Gault) 78.3 104.6 BUN/Creatinine Ratio 7 (6-20) Glucose Level 116 mg/dL (70-99) 108 mg/dL (70-99) Lactic Acid Level 1.4 mmol/L (0.4-2.0) Calcium Level 8.8 mg/dL (8.5-10.1) 7.7 mg/dL (8.5-10.1) Total Bilirubin 1.1 mg/dL (0.2-1.0) Aspartate Amino Transf (AST/SGOT) 19 U/L (15-37) Alanine Aminotransferase (ALT/SGPT) 17 U/L (14-59) Alkaline Phosphatase 55 U/L (46-116) Total Protein 7.2 g/dL (6.4-8.2) Albumin 3.7 g/dL (3.4-5.0) Albumin/Globulin Ratio 1.1 (1.0-1.7) Urine Collection Type Void Urine Color Yellow Urine Clarity Clear Urine pH 8.0 Urine Specific [place] 1.015 Urine Protein Negative mg/dL (NEG-TRACE) Urine Glucose (UA) Negative mg/dL (NEG) Urine Ketones (Stick) Negative mg/dL (NEG) Urine Blood Negative (NEG) Urine Nitrite Negative (NEG) Urine Bilirubin Negative (NEG) Urine Urobilinogen Dipstick 1.0 mg/dL (0.2 mg/dL) Urine Leukocyte Esterase Negative (NEG) Urine RBC 0 /HPF (0-2) Urine WBC Occ /HPF (0-4) Urine Squamous Epithelial Cells Few /LPF Urine Bacteria 0 /HPF (0-FEW) Influenza Type A Antigen Negative (NEGATIVE) Influenza Type B Antigen Negative (NEGATIVE) Test 10/15/18 03:35 White Blood Count 6.6 x10^3/uL (4.0-11.0) Red Blood Count 3.51 x10^6/uL (3.50-5.40) Hemoglobin 10.4 g/dL (12.0-15.5) Hematocrit 30.7 % (36.0-47.0) Mean Corpuscular Volume 87 fL (79-100) Mean Corpuscular Hemoglobin 30 pg (25-35) Mean Corpuscular Hemoglobin Concent 34 g/dL (31-37) Red Cell Distribution Width 13.6 % (11.5-14.5) Platelet Count 158 x10^3/uL (140-400) Neutrophils (%) (Auto) 91 % (31-73) Lymphocytes (%) (Auto) 7 % (24-48) Monocytes (%) (Auto) 2 % (0-9) Eosinophils (%) (Auto) 0 % (0-3) Basophils (%) (Auto) 0 % (0-3) Neutrophils # (Auto) 6.0 x10^3uL (1.8-7.7) Lymphocytes # (Auto) 0.5 x10^3/uL (1.0-4.8) Monocytes # (Auto) 0.1 x10^3/uL (0.0-1.1) Eosinophils # (Auto) 0.0 x10^3/uL (0.0-0.7) Basophils # (Auto) 0.0 x10^3/uL (0.0-0.2) Laboratory Tests Test 10/14/18 22:20 10/14/18 22:25 10/14/18 23:10 10/15/18 03:30 White Blood Count 9.7 x10^3/uL (4.0-11.0) Red Blood Count 3.89 x10^6/uL (3.50-5.40) Hemoglobin 11.5 g/dL (12.0-15.5) Hematocrit 33.9 % (36.0-47.0) Mean Corpuscular Volume 87 fL (79-100) Mean Corpuscular Hemoglobin 30 pg (25-35) Mean Corpuscular Hemoglobin Concent 34 g/dL (31-37) Red Cell Distribution Width 13.3 % (11.5-14.5) Platelet Count 174 x10^3/uL (140-400) Neutrophils (%) (Auto) 94 % (31-73) Lymphocytes (%) (Auto) 3 % (24-48) Monocytes (%) (Auto) 3 % (0-9) Eosinophils (%) (Auto) 0 % (0-3) Basophils (%) (Auto) 0 % (0-3) Neutrophils # (Auto) 9.1 x10^3uL (1.8-7.7) Lymphocytes # (Auto) 0.3 x10^3/uL (1.0-4.8) Monocytes # (Auto) 0.2 x10^3/uL (0.0-1.1) Eosinophils # (Auto) 0.0 x10^3/uL (0.0-0.7) Basophils # (Auto) 0.0 x10^3/uL (0.0-0.2) Segmented Neutrophils % 90 % (35-66) Band Neutrophils % 4 % (0-9) Lymphocytes % 5 % (24-48) Eosinophils % 1 % (0-5) Platelet Estimate Adequate (ADEQUATE) Sodium Level 140 mmol/L (136-145) 141 mmol/L (136-145) Potassium Level 3.7 mmol/L (3.5-5.1) 3.4 mmol/L (3.5-5.1) Chloride Level 102 mmol/L (98-107) 107 mmol/L (98-107) Carbon Dioxide Level 27 mmol/L (21-32) 23 mmol/L (21-32) Anion Gap 11 (6-14) 11 (6-14) Blood Urea Nitrogen 6 mg/dL (7-20) 6 mg/dL (7-20) Creatinine 0.9 mg/dL (0.6-1.0) 0.7 mg/dL (0.6-1.0) Estimated GFR (Cockcroft-Gault) 78.3 104.6 BUN/Creatinine Ratio 7 (6-20) Glucose Level 116 mg/dL (70-99) 108 mg/dL (70-99) Lactic Acid Level 1.4 mmol/L (0.4-2.0) Calcium Level 8.8 mg/dL (8.5-10.1) 7.7 mg/dL (8.5-10.1) Total Bilirubin 1.1 mg/dL (0.2-1.0) Aspartate Amino Transf (AST/SGOT) 19 U/L (15-37) Alanine Aminotransferase (ALT/SGPT) 17 U/L (14-59) Alkaline Phosphatase 55 U/L (46-116) Total Protein 7.2 g/dL (6.4-8.2) Albumin 3.7 g/dL (3.4-5.0) Albumin/Globulin Ratio 1.1 (1.0-1.7) Urine Collection Type Void Urine Color Yellow Urine Clarity Clear Urine pH 8.0 Urine Specific [place] 1.015 Urine Protein Negative mg/dL (NEG-TRACE) Urine Glucose (UA) Negative mg/dL (NEG) Urine Ketones (Stick) Negative mg/dL (NEG) Urine Blood Negative (NEG) Urine Nitrite Negative (NEG) Urine Bilirubin Negative (NEG) Urine Urobilinogen Dipstick 1.0 mg/dL (0.2 mg/dL) Urine Leukocyte Esterase Negative (NEG) Urine RBC 0 /HPF (0-2) Urine WBC Occ /HPF (0-4) Urine Squamous Epithelial Cells Few /LPF Urine Bacteria 0 /HPF (0-FEW) Influenza Type A Antigen Negative (NEGATIVE) Influenza Type B Antigen Negative (NEGATIVE) Test 10/15/18 03:35 White Blood Count 6.6 x10^3/uL (4.0-11.0) Red Blood Count 3.51 x10^6/uL (3.50-5.40) Hemoglobin 10.4 g/dL (12.0-15.5) Hematocrit 30.7 % (36.0-47.0) Mean Corpuscular Volume 87 fL (79-100) Mean Corpuscular Hemoglobin 30 pg (25-35) Mean Corpuscular Hemoglobin Concent 34 g/dL (31-37) Red Cell Distribution Width 13.6 % (11.5-14.5) Platelet Count 158 x10^3/uL (140-400) Neutrophils (%) (Auto) 91 % (31-73) Lymphocytes (%) (Auto) 7 % (24-48) Monocytes (%) (Auto) 2 % (0-9) Eosinophils (%) (Auto) 0 % (0-3) Basophils (%) (Auto) 0 % (0-3) Neutrophils # (Auto) 6.0 x10^3uL (1.8-7.7) Lymphocytes # (Auto) 0.5 x10^3/uL (1.0-4.8) Monocytes # (Auto) 0.1 x10^3/uL (0.0-1.1) Eosinophils # (Auto) 0.0 x10^3/uL (0.0-0.7) Basophils # (Auto) 0.0 x10^3/uL (0.0-0.2) VTE Prophylaxis Ordered VTE Prophylaxis Devices: No VTE Pharmacological Prophylaxi: No Assessment/Plan Assessment/Plan A: Post op endometritis Fevers P: Admit for IV abx. Continue IV abx until afebrile 24-48 hours. Pt. receiving Zosyn and Flagyl. MONAE IGLESIAS Jr, MD Oct 15, 2018 11:48
--- NOTE | 2018-10-15 13:24 | RAD ---
Examination: PELVIS COMPLETE History: PT HAD D&C YESTERDAY, CAME HERE LAST NIGHT HIGH FEVER,ABNORMAL CT Comparison/Correlation: 10/14/2018 CT abdomen and pelvis with contrast Findings: Transabdominal vaginal and transabdominal pelvic ultrasound exam was performed. Transvaginal technique was utilized to better assess the adnexal structures. Uterus measures 7.5 cm x 5.9 cm x 4.9 cm. Myometrium is normal. The endometrium is heterogeneous. Heterogeneous low echogenicity fluid within the uterine cavity noted. Endometrial thickness of up to 1.1 cm noted. No definite abnormal flow involving the endometrium on color Doppler imaging. Right ovary measures 3.8 cm x 2 cm x 1.77. Left ovary measures 2.7 cm x 2.6 cm x 2 cm. Normal ovarian flow is present on color Doppler imaging and spectral Doppler imaging. Small adnexal follicles are present bilaterally. Minimal pelvic free fluid noted. Impression: Adnexal follicles and pelvic free fluid are physiologic in appearance. No abnormal flow to suggest retained products of conception. Heterogeneously hypoechoic fluid within the endometrial cavity which may represent residual hemorrhage or debris. Electronically signed by: Rey Machado MD (10/15/2018 1:21 PM) [facility]
[2018-10-15 14:50] VITALS: BP 110/66
[2018-10-15 18:14] VITALS: BP 116/74
[2018-10-15 23:04] VITALS: BP 117/74
[2018-10-16] MEDS: PIPERACILLIN/TAZOBACTAM 3.375 GM in IV NORMAL SALINE 50ML 50 ML IV SCH ×4 (00:02→18:03)
[2018-10-16 04:18] LABS: BASO % 0 % (0-3); EOS % 1 % (0-3); HEMATOCRIT 28.1 % (36.0-47.0); HEMOGLOBIN 9.7 g/dL (12.0-15.5); LYMPH # 0.8 x10^3/uL (1.0-4.8); LYMPH % 21 % (24-48); MEAN CORPUSCULAR HEMOGLOBIN 30 pg (25-35); MEAN CORPUSCULAR HGB CONC 34 g/dL (31-37); MEAN CORPUSCULAR VOLUME 87 fL (79-100); MONO # 0.2 x10^3/uL (0.0-1.1); MONO % 6 % (0-9); NEUT # 2.8 x10^3uL (1.8-7.7); NEUT % 72 % (31-73); PLATELET COUNT 153 x10^3/uL (140-400); RED BLOOD COUNT 3.23 x10^6/uL (3.50-5.40); RED CELL DISTRIBUTION WIDTH 13.3 % (11.5-14.5); WHITE BLOOD COUNT 3.9 x10^3/uL (4.0-11.0)
[2018-10-16] MEDS: ACETAMINOPHEN 325 MG TABLET. PO PRN ×2 (06:16→18:41)
[2018-10-16 06:22] VITALS: BP 117/74
[2018-10-16 11:07] VITALS: BP 109/64
[2018-10-16 14:27] VITALS: BP 114/65
[2018-10-16 18:45] VITALS: BP 114/76
[2018-10-16] MEDS ORDERED: LACTOBACILLUS RHAMNOSUS GG 1 CAPSULE. PO SCH (21:00)
[2018-10-16 23:00] VITALS: BP 119/81
[2018-10-17] MEDS: PIPERACILLIN/TAZOBACTAM 3.375 GM in IV NORMAL SALINE 50ML 50 ML IV SCH ×2 (00:10→05:59)
[2018-10-17 04:34] LABS: BASO % 0 % (0-3); EOS # 0.1 x10^3/uL (0.0-0.7); EOS % 1 % (0-3); HEMATOCRIT 29.6 % (36.0-47.0); LYMPH # 1.2 x10^3/uL (1.0-4.8); LYMPH % 20 % (24-48); MEAN CORPUSCULAR HEMOGLOBIN 29 pg (25-35); MEAN CORPUSCULAR HGB CONC 34 g/dL (31-37); MEAN CORPUSCULAR VOLUME 87 fL (79-100); MONO # 0.4 x10^3/uL (0.0-1.1); MONO % 6 % (0-9); NEUT # 4.4 x10^3uL (1.8-7.7); NEUT % 73 % (31-73); PLATELET COUNT 168 x10^3/uL (140-400); RED CELL DISTRIBUTION WIDTH 13.8 % (11.5-14.5)
[2018-10-17 06:22] VITALS: BP 121/80
--- NOTE | 2018-10-17 08:31 | PDOC ---
Provider Note Provider Note 10/16/18 Late entry Stable Chills last Pm CCC FU in AM Vital Sign - Last 24 Hours 10/16/18 10/16/18 10/16/18 10/16/18 11:07 14:27 18:45 23:00 Temp 97.5 97.8 98.8 98.6 97.5 97.8 98.8 98.6 Pulse 67 70 87 76 Resp 16 16 18 16 B/P (MAP) 109/64 (79) 114/65 (81) 114/76 (89) 119/81 (94) Pulse Ox 98 99 100 99 O2 Delivery Room Air Room Air Room Air Room Air 10/17/18 06:22 Temp 99.3 99.3 Pulse 85 Resp 16 B/P (MAP) 121/80 (94) Pulse Ox 97 RAFA WHEAT MD Oct 17, 2018 08:31
--- NOTE | 2018-10-17 08:35 | PDOC3 ---
OB DISCHARGE SUMMARY DATE OF ADMISSION: 10/14/18 DATE OF DISCHARGE: 10/17/18 REASON FOR ADMISSION: Spontaneous aboration PROCEDURES: Ultrasound PROCEDURES: Others (IV abs) OPERATIONS: Pelvic Infection DISCHARGE DIAGNOSIS: Others (Endometrits) DISCHARGE INFORMATION: Activity, Diet HOSPITAL COURSE Unremarkable CONDITION AT DISCHARGE Stable RAFA WHEAT MD Oct 17, 2018 08:35
[2018-10-17] MEDS ORDERED: CIPR500T94 PO (08:38)
[2018-10-17] MEDS ORDERED: METR500T PO (08:38)
== END 2018-10-17 10:20 | disposition home or self-care (01) | DRG 779 ==
LOC: ER 21:00 → 3 NORTH 23:26
PROVIDERS: ADMIT Specialist; ATTEND Specialist
DX: O03.0 Genital tract and pelvic infection following incomplete spontaneous abortion (principal); Z88.1 Allergy status to other antibiotic agents; N71.9 Inflammatory disease of uterus, unspecified
CPT/HCPCS: 36415; 71045; 74177; 76856; 80048; 80053; 81001; 83605; 85007; 85025; 87040; 87804; 96361; 96365; 96375; J1885; J2543; J3490; J7030; J7040; Q9967; 99285-25